=== PATIENT | male | born 1970 | race Caucasian/White ===

== ENCOUNTER 2020-02-02 13:36 | Observation (INO) | payer BC ==
[~2020-02-02] VITALS: Ht 180.3 cm; Wt 128.6 kg
--- NOTE | ~2020-02-02 | HEMODYNAMI ---
PATIENT:HAMIDA MCMILLAN MEDICAL RECORD: [id number] : [birth year] LOCATION:[facility] [address] [id number] ADMISSION DATE: 02/02/20 Generatedon:02/04/202012:37 Patient name: HAMIDA MCMILLAN Patient #: [id number] SSN: [id number] : 1970 Date of study: 02/04/2020 Page: Of Hemodynamic Procedure Report Patient Data Patient Demographics Procedure consent was obtained First Name: HAMIDA Gender: Male Last Name: SIDRA : 1970 Patient #: [id number] Age: 50 year(s) Race: SSN: [id number] Additional ID: [id number] Contact details Address: [address] [place] [address] State: [place] City: [place] Zip code: [address] Past Medical History Performed procedures and imaging results Date Procedure Procedure Results Comments 02/02/2020 Stress testing Positive->Intermediate with SPECT MPI risk Allergies: No known allergies Admission Admission Data Admission Date: 02/02/2020 Admission Time: 14:38 Arrival Date: 02/04/2020 Arrival Time: 0:00 Admit Source: Other Insurance Payor: Private Room #: [id number] health insurance [facility] #: [id number] Height (in.): 71 BSA: 2.51 (m2) Height (cm.): 180.34 BMI: 41.93 (kg/m2) Weight (lbs.): 300.62 Weight (kg.): 136.36 Lab Results Lab Result Date: 02/04/2020 Lab Result Time: 0:00 Biochemistry Name Units Result Min Max BUN mg/dl 15 --(--*-)-- 7 18 Creatinine mg/dl 0.9 --(-*--)-- 0.6 1.3 Creatinine l 2 -*(----)-- 21 215 Kinase eGFR ml/min 90 --(*---)-- 90 120 NONAFRICAN Troponin l ng/ml 0.017 --(-*--)-- 0 0.06 CBC Name Units Result Min Max Hematocrit % 40.3 -*(----)-- 42 54 Hemoglobin g/dl 13.2 -*(----)-- 13.5 17.5 Procedure Procedure Types Cath Procedure Diagnostic Procedure [facility] w/Coronaries Sedation Charges Moderate Sedation up to 15 minutes Procedure Description Procedure Date Procedure Date: 02/04/2020 Procedure Start Time: 12:20 Procedure End Time: 12:32 Procedure Staff Name Function Herminio Devi MD Performing Physician Modesta Morin RT Monitor Mirna Lopez RT Scrub Mallory Ngo RN Nurse Indication Unstable angina Procedure Data Cath Procedure Fluoroscopy Diagnostic fluoroscopy Total fluoroscopy Time: 1 time: 1 min min Diagnostic fluoroscopy Total fluoroscopy dose: 352 dose: 352 mGy mGy Contrast Material Contrast Material Type Amount (ml) Isovue 300 55 Entry Location Entry Primary Successful Side Size Upsize Upsize Entry Closure Succes sful Closure Location (Fr) 1 (Fr) 2 (Fr) Remarks Device Remarks Femoral Right 5 Fr Exoseal artery Estimated blood loss: 5 ml Procedure Complications No complications Procedure Medications Medication Administration Route Dosage Oxygen etCO2 Nasal cannula 2 l/min Lidocaine 2% added to field 20 Heparin Flush Bag added to field 2 bags (1000units/500ml NS) 0.9% NaCl I.V. 100 ml/hr Versed I.V. 1 mg Fentanyl I.V. 50 mcg Versed I.V. 1 mg Fentanyl I.V. 50 mcg Versed I.V. 1 mg Radial Cocktail added to field 1 syringe (Verapamil 2mg/Nitro 400mcg/Heparin 1500units) Hemodynamics Rest BSA: 2.51 (m2) HGB: 13.2 (g/dl) O2 Consumption: Estimated: 252.15 (ml/min) O2 Co nsumption indexed: Estimated:100.46 (ml/min/m) Heart Rate: 21 (bpm) Pressure Samples Time Site Value (mmHg) Purpose Heart Use Rate(bpm) 12:29 LV 110/10,17 Snapshot 82 Gradients Valve Time Site Site Mean SEP/DFP Peak To Heart Use 1 2 (mmHg) (sec/min) Peak Rate (mmHg) (bpm) Aortic 12:30 LV AO 86 Snapshots Pre Cath Intra NCS Post Cath Vital Signs Time Heart Resp SPO2 etCO2 NIBP (mmHg) Rhythm Pain Sedation Rate (ipm) (%) (mmHg) Status Level (bpm) 12:11:30 69 21 99 27.9 147/88(116) NSR 0 (11) 10(A) , No pain 12:15:46 71 18 98 34.6 143/78(103) NSR 0 (11) 10(A) , No pain 12:20:00 75 20 93 32.4 133/77(106) NSR 0 (11) 10(A) , No pain 12:24:08 76 18 93 33.9 138/85(110) NSR 0 (11) 9(A) , No pain 12:28:18 80 20 96 33.9 141/83(113) NSR 0 (11) 9(A) , No pain 12:32:27 75 18 94 33.9 146/87(111) NSR 0 (11) 10(A) , No pain Medications Time Medication Route Dose Verified Delivered Reason Notes Effectiveness by by 11:50:01 Oxygen etCO2 2 l/min Herminio Tejada used for Nasal [facility] Jesús Ngo RN procedure cannula 12:00:09 Lidocaine 2% added 20ml Herminio Herminio for local to vial Count Includes [facility] anesthetic field MD HUSSEIN 12:00:16 Heparin Flush added 2 bags Herminio Herminio used for Bag to Count Includes [facility] procedure (1000units/500ml field MD HUSSEIN NS) 12:00:26 0.9% NaCl I.V. 100 Herminio Buffie Per ml/hr [facility] Jesús Ngo RN physician 12:05:05 Radial Cocktail added 1 Herminio Buffie Wasted, (Verapamil to syringe [facility] Jesús Ngo RN femoral 2mg/Nitro field HUSSEIN artery 400mcg/Heparin access 1500units) obtained. 12:13:35 Versed I.V. [address] [facility] Jesús Ngo RN sedation 12:13:41 Fentanyl I.V. 50 mcg Herminio Shinie for [facility] Jesús Ngo RN sedation 12:20:08 Versed I.V. 1 mg Herminio Buffie for [facility] Jesús Ngo RN sedation 12:20:12 Fentanyl I.V. 50 mcg Herminio Shinie for [facility] Jesús Ngo RN sedation 12:26:33 Versed I.V. 1 mg [address]io [address]ie for [facility] Jesús Ngo RN sedation Procedure Log Time Note 11:44:50 Informed consent obtained and on chart 11:45:43 Patient allergic to No known allergies 11:48:04 Lab Result : Troponin l 0.017 ng/ml 11:48:04 Lab Result : eGFR NONAFRICAN 90 ml/min 11:48:04 Lab Result : Creatinine Kinase 2 l 11:48:04 Lab Result : BUN 15 mg/dl 11:48:04 Lab Result : Creatinine 0.9 mg/dl 11:48:04 Lab Result : Hematocrit 40.3 % 11:48:04 Lab Result : Hemoglobin 13.2 g/dl 11:48:07 Arrival Date: 02/04/2020 12:00:00 AM 11:48:08 Admit Source: Other 11:48:15 Insurance Payor : Private health insurance 11:48:25 Diagnostic Cath Status : Urgent 11:49:00 Indication : Unstable angina 11:49:33 Patient Height : 71 inches 11:49:39 Patient Weight : 300.62 lbs 11:50:01 Oxygen 2 l/min etCO2 Nasal cannula was administered by Mallory Ngo RN; used for procedure; Verbal order read back and verified. 11:50:06 ACC Patient presents with Stable Angina CCS Anginal Class 1--Ordinary physical activity does not cause angina, angina occurs with strenuos, rapid, or prolonged activity.. 11:50:10 Procedure Status Urgent Heart Cath (IP). 11:50:13 Mallory Ngo RN sent for patient. Start room use. 11:50:15 Time tracking: Regular hours (M-F 7:00 - 5:00) 11:50:19 Plan of Care:Hemodynamics will remain stable., Cardiac rhythm will remain stable., Comfort level will be maintained., Respiratory function will remain adequate., Patient/ family verbilizes understanding of procedure., Procedure tolerated without complication., Recovers from procedure without complications.. 11:50:34 H&P Date Dictated: 02/02/2020 Within 30 days and on chart.. 11:50:35 Pre-procedure instructions explained to patient. 11:50:35 Pre-op teaching completed and patient verbalized understanding. 11:50:37 Family unavailable. 11:50:38 Patient NPO since Midnight. 11:50:47 Lab results completed and on chart. 11:51:18 Stress Test: yes; abnormal INFERIOR LATERAL 11:51:28 Alarms reviewed by R. N. 11:51:28 Sharps counted by scrub and verified by R.N. 11:55:21 Risk of Mortality: 0.1 11:55:24 Risk of blood transfusion: 0.2 11:55:27 Risk of LISET: 0.3 11:56:02 Patient received from Med II to CCL 1 Alert and oriented. Tansferred to table in Supine position. 11:56:08 Warm blankets applied, and bettina hugger turned on for patient comfort. 11:56:09 Correct patient and procedure confirmed by team. 11:56:11 ECG and BP/O2 sat monitors applied to patient. 11:56:19 Is the patient allergic to Iodine/contrast media? No. 12:00:09 Lidocaine 2% 20ml vial added to field was administered by Herminio Devi MD; for local anesthetic; Verbal order read back and verified. 12:00:16 Heparin Flush Bag (1000units/500ml NS) 2 bags added to field was administered by Herminio Devi MD; used for procedure; Verbal order read back and verified. 12:00:26 0.9% NaCl 100 ml/hr I.V. was administered by Mallory Ngo RN; Per physician; Verbal order read back and verified. 12:02:17 Called and spoke with spouse of pt, Narayan Mcmillan and update given. 12:05:05 Radial Cocktail (Verapamil 2mg/Nitro 400mcg/Heparin 1500units) 1 syringe added to field was administered by Mallory Ngo RN; ; Wasted, femoral artery access obtained. Verbal order read back and verified. 12:10:18 Vital chart was started 12:10:19 Baseline sample Acquired. 12:10:22 Rhythm: sinus tachycardia 12:10:24 Full Disclosure recording started 12:10:30 Was the patient premedicated? Yes 12:10:31 Is patient on blood thinner?No 12:10:36 Patient diabetic? No. 12:10:42 Previous problem with sedation/anesthesia? No ? 12:10:44 Snore? Yes 12:10:45 Sleep apnea? No 12:10:46 Deviated septum? No 12:10:46 Opens mouth fully? Yes 12:10:47 Sticks out tongue? Yes 12:10:49 Airway obstruction? No ? 12:10:52 Dentures? No ? 12:10:54 Pre procedure: right dorsailis pedis pulse 2+ Normal; easily identifiable; not easily obliterated 12:10:56 Pre procedure: left dorsailis pedis pulse 2+ Normal; easily identifiable; not easily obliterated 12:10:59 Modified Miguel's test Radial < 7 seconds 12:11:02 Patient pain scale 0/10 ?. 12:11:08 IV patent on arrival in left forearm with 0.9% NaCl at [facility]. 12:11:13 Right Radial & Right Groin area was prepped with chlora-prep and draped in sterile fashion 12:11:15 Physician arrived 12:11:16 --------ALL STOP TIME OUT------ 12:11:16 Final Timeout: patient, procedure, and site verified with staff and physician. All members of the team are in agreement. 12:11:18 Right Radial & Right Groin site verified by team. 12:11:22 Fire Safety Assessment: A--An alcohol-based skin anteseptic being used preoperatively., C--Open oxygen or nitrous oxide is being used., D--An ESU, laser, or fiber-optic light is being used. 12:11:25 Physical assessment completed. ASA score P 2 - A patient with mild systemic disease as per Herminio Devi MD. 12:11:31 1) 90+ Normal kidney functon but urine findings or structural abnormalities or genetic trait point to kidney disease. 12:11:33 Maximum allowable contrast dose (3.7 X eGFR X 0.75)250 ml. 12:11:37 Sedation plan: IV Moderate Sedation Medication:Versed, Fentanyl 12:11:40 Use device set Radial Dx or PCI 12:11:41 ACIST Syringe (41698) opened to sterile field. 12:11:41 Medline Cath Pack ([id number]) opened to sterile field. 12:11:41 Bag Decanter () opened to sterile field. 12:11:42 ACIST Hand Control (82346) opened to sterile field. 12:11:42 ACIST Manifold (71790) opened to sterile field. 12:11:43 Tegaderm 4 x 4 (1626W) opened to sterile field. 12:11:43 MBrace Wrist Support ([id number]) opened to sterile field. 12:11:45 EMERALD Guide Wire (502-010) opened to sterile field. 12:11:45 SHEATH 6FR RAIN (6543951) opened to sterile field. 12:13:35 Versed 1 mg I.V. was administered by Mallory Ngo RN; for sedation; Verbal order read back and verified. 12:13:41 Fentanyl 50 mcg I.V. was administered by Mallory Ngo RN; for sedation; Verbal order read back and verified. 12:20:08 Versed 1 mg I.V. was administered by Mallory Ngo RN; for sedation; Verbal order read back and verified. 12:20:12 Fentanyl 50 mcg I.V. was administered by Mallory Ngo RN; for sedation; Verbal order read back and verified. 12:20:46 Procedure started. 12:20:54 Local anesthetic to right radial artery with Lidocaine 2% by Herminio Devi MD.INITIAL ACCESS ONLY 12:24:39 Unable to gain radial access 12:24:43 Local anesthetic to right femoral artery with Lidocaine 2% by Herminio Devi MD.ADDITIONAL ACCESS 12:24:55 SHEATH 5FR [place] (KGC648) opened to sterile field. 12:24:56 DIAGNOSTIC Multipack 5Fr catheter set (UM6406) opened to sterile field. 12:25:08 A 5 Fr sheath was inserted into the Right Femoral artery 12:25:44 5 Fr jl 4 guide catheter was inserted over the wire 12:26:33 Versed 1 mg I.V. was administered by Mallory Ngo RN; for sedation; Verbal order read back and verified. 12:26:40 LCA angiography performed. 12::43 Injector settings: Ml/sec: 3, Volume: 6, 12:27:28 Catheter removed. 12:27:34 5 Fr 3drc guide catheter was inserted over the wire 12:28:21 RCA angiography performed. 12:28:26 Injector settings: Ml/sec: 3, Volume: 6, 12:28:30 Catheter removed. 12:28:51 5 Fr pigtail guide catheter was inserted over the wire 12:29:07 EXOSEAL 5Fr (EX500) opened to sterile field. 12:29:50 LV hemodynamics recorded. 12:29:52 LV gram done using JOHNSON 12:30:03 EF : 55 % 12:30:06 Injector settings: Ml/sec: 5, Volume: 15, 12:30:08 Catheter removed. 12:30:35 ACCDominant side:Right 12:30:45 Sheath removed intact; hemostasis achieved with Exoseal to the Right Femoral artery. 12:30:46 Procedure ended.(Physican Out) 12:30:55 Fluoroscopy time 01.00 minutes. 12:30:58 Fluoroscopy dose: 352 mGy 12:30:58 Flurop Dose total: 352 12:31:04 Dose Area Product 93763 mGy/cm. 12:31:08 Contrast amount:Isovue 300 55ml. 12:31:10 Maximum allowable dose exceeded? No. 12:31:20 Sharps counted by scrub and verified by R.N. 12:31:22 Insertion/operative site no bleeding no hematoma. 12:31:24 Post-op/insertion site Right Femoral artery dressed using a 4 x 4 and Tegaderm. 12:31:27 Post procedure rhythm: unchanged. 12:31:30 Estimated blood loss: 5 ml 12:31:31 Post procedure instruction explained to patient.Patient verbalizes understanding. 12:31:32 Patient needs reinforcement of post procedure teaching. 12:31:40 Procedure type changed to Cath procedure, Diagnostic procedure, LHC, C w/Coronaries, Sedation Charges, Moderate Sedation up to 15 minutes 12:31:42 Procedure and supply charges have been captured, reviewed, submitted and are correct. 12::46 Procedure Complication : No complications 12:31:50 Vital chart was stopped 12:31:53 [facility] Findings: mild to moderate CAD (<70%) 12:31:54 Operative report dictated upon procedure completion. 12:31:55 See physician's report for complete and final results. 12:31:58 Report given to [facility]. 12:32:03 Patient transfered to [facility] with Stretcher. 12:32:05 Procedure ended. 12:32:05 Full Disclosure recording stopped 12:32:12 End room use (Document Last) 12:32:38 End room use (Document Last) 12:32:56 End room use (Document Last) Device Usage Item Name Manufacture Quantity Catalog Hospital Part Current Minima l Lot# / Number Charge Number Stock Stock Serial# Code ACIST Acist 1 29315 [id number] 301442 150636 20 [id number] Grid Solutions Medline Medline 1 [id number] 69248 648578 5 Cath Pack ([id number]) Bag Microtek 1 230751 90655 912659 5 Decanter Medical Inc. () ACIST Hand Acist 1 56337 979468 570628 967005 5 Control Medical (58615) Systems Inc ACIST Acist 1 09216 239774 845092 965688 5 Manifold Medical (06274) Systems Inc Tegaderm 4 3M 1 1626W 356167 839115 970253 5 x 4 (1626W) MBrace Advanced 1 140-0250-00 732367 90841 488437 5 Wrist Vascular Support Dynamics ([id number]) EMERALD Cardinal 1 502-455 010687 529149 407345 5 Guide Wire Health (502-455) SHEATH 6FR Cardinal 1 [id number] 220272 3753457 517352 5 V[employer] (8538923) SHEATH 5FR Terumo 1 LEW348 784922 599626 140754 5 [place] (AAZ030) DIAGNOSTIC Cardinal 1 RP9430 739308 54581 282037 30 Multipack InSite Wireless 5Fr catheter set (IN5135) EXOSEAL 5Fr Cardinal 1 EX500 638438 984773 506713 10 (EX500) Health Signature Audit [place] Stage Time Signature Unsigned Intra-Procedure 02/04/2020 Modesta Morin 12:32:39 PM RT(R) Intra-Procedure 02/04/2020 Mallory Ngo RN 12:32:56 PM Intra-Procedure 02/04/2020 Herminio Waldrop 12:37:50 PM Jesús [place]IN [address] [place] [address]
[2020-02-02 13:57] LABS: HEMATOCRIT 43.5 % (42.0-54.0); HEMOGLOBIN 14.4 g/dL (13.5-17.5); LYMPHOCYTES 26.9 % (15-50); MCH 27.5 pg (26.0-34.0); MCHC 33.1 g/dL (31.0-37.0); MCV 83.2 fL (80.0-100.0); MEAN PLATELET VOLUME 8.4 fL (7.4-10.4); NEUTROPHILS 64.1 % (40-80); PLATELET COUNT 294 10x3/uL (130-400); RBC 5.23 10x6/uL (4.20-6.10); RDW 13.3 % (11.5-14.5); WBC 6.6 10x3/uL (4.8-10.8)
[2020-02-02 14:11] LABS: CALC OSMOLALITY 281 mosm/kg (275-300); CALCIUM 8.8 mg/dL (8.5-10.1); CARBON DIOXIDE 28.2 mmol/L (21.0-32.0); CHLORIDE - SERUM 106 mmol/L (98-107); GLUCOSE 96 mg/dL (74-106); POTASSIUM - SERUM 4.1 mmol/L (3.5-5.1); SODIUM 141 mmol/L (136-145); UREA NITROGEN 16 mg/dL (7-18); eGFR NON AFRICAN AMERICAN 83 mL/min (90-120)
[2020-02-02 14:26] LABS: ALBUMIN 3.7 g/dL (3.4-5.0); ALKALINE PHOSPHATASE 53 U/L (30-120); ALT (SGPT) 38 U/L (10-68); BILIRUBIN - TOTAL 0.35 mg/dL (0.2-1.3); CKMB 3.2 U/L (0.0-3.6); CREATINE KINASE 263 UL (21-232); PRO BNP 158 pg/mL (0-125)
[2020-02-02 14:32] LABS: TROPONIN-I < 0.017 ng/mL (0.000-0.060)
[2020-02-02 14:47] VITALS: BP 125/80
[2020-02-02] MEDS ORDERED: BENADRYL25 MG PO (15:07)
[2020-02-02] MEDS ORDERED: OSTEO BI-FLEX1 EAC1 PO (15:07)
[2020-02-02 15:14] LABS: LDL-HDL RATIO 3.3 ratio (1.5-3.5)
--- NOTE | 2020-02-02 15:34 | NUR ---
RECEIVED PT TO ROOM 2115 VIA WHEELCHAIR, PT A/O X4, RESP EVEN AND NONLABORED ON RA. ORIENTED PT TO ROOM AND CALL LIGHT. WILL ASSESS PT AND START PLAN OF CARE.
--- NOTE | 2020-02-02 15:35 | NUR ---
PAGED DR. DRUMMOND.
[2020-02-02 15:36] VITALS: BP 137/86; BMI 41.9
[2020-02-02 15:59] VITALS: BP 137/86
[2020-02-02 19:51] LABS: CREATINE KINASE 198 UL (21-232); TROPONIN-I < 0.017 ng/mL (0.000-0.060)
[2020-02-02 20:00] VITALS: BP 126/79
--- NOTE | 2020-02-02 20:00 | NUR ---
REPORT RECIEVED AND INITIAL ROUNDS COMPLETED. PT ALERT/ORIENTED AND RESTING IN BED. SR PER TELEMETRY. NONLABORED RESPIRATIONS ON ROOM AIR. SALINE LOCK TO LEFT A/C. INSTRUCT ON NPO AFTER MIDNIGHT UNTIL SEEN BY VINYL FLOORING INSTALLER IN AM. PT DENIES CHEST PAIN AT THIS TIME.
[2020-02-03] VITALS: BP 114/73
[2020-02-03 02:30] LABS: HEMATOCRIT 40.3 % (42.0-54.0); HEMOGLOBIN 13.2 g/dL (13.5-17.5); LYMPHOCYTES 28.3 % (15-50); MCH 27.2 pg (26.0-34.0); MCHC 32.8 g/dL (31.0-37.0); MCV 83.1 fL (80.0-100.0); MEAN PLATELET VOLUME 8.7 fL (7.4-10.4); NEUTROPHILS 63.1 % (40-80); PLATELET COUNT 275 10x3/uL (130-400); RBC 4.85 10x6/uL (4.20-6.10); RDW 13.3 % (11.5-14.5); WBC 6.2 10x3/uL (4.8-10.8)
[2020-02-03 02:43] LABS: ALKALINE PHOSPHATASE 45 U/L (30-120); BILIRUBIN - TOTAL 0.36 mg/dL (0.2-1.3); CALC OSMOLALITY 279 mosm/kg (275-300); CALCIUM 8.2 mg/dL (8.5-10.1); CARBON DIOXIDE 22.7 mmol/L (21.0-32.0); CHLORIDE - SERUM 108 mmol/L (98-107); CKMB 2.2 U/L (0.0-3.6); CREATINE KINASE 155 UL (21-232); GLUCOSE 101 mg/dL (74-106); POTASSIUM - SERUM 3.6 mmol/L (3.5-5.1); SODIUM 140 mmol/L (136-145); TROPONIN-I < 0.017 ng/mL (0.000-0.060); UREA NITROGEN 15 mg/dL (7-18); eGFR NON AFRICAN AMERICAN 83 mL/min (90-120)
[2020-02-03 02:45] LABS: ALT (SGPT) 28 U/L (10-68)
--- NOTE | 2020-02-03 03:31 | NUR ---
RESTING WITH NO DISTRESS. NPO FOR AM CARDIOLOGY CONSULT. .CPOC.
[2020-02-03 04:00] VITALS: BP 115/75
[2020-02-03 07:54] LABS: ALBUMIN 3.3 g/dL (3.4-5.0); ALKALINE PHOSPHATASE 45 U/L (30-120); ALT (SGPT) 32 U/L (10-68); BILIRUBIN - TOTAL 0.44 mg/dL (0.2-1.3); CALC OSMOLALITY 279 mosm/kg (275-300); CALCIUM 8.6 mg/dL (8.5-10.1); CARBON DIOXIDE 25.2 mmol/L (21.0-32.0); CHLORIDE - SERUM 106 mmol/L (98-107); CREATINE KINASE 141 UL (21-232); CREATININE - SERUM 0.9 mg/dL (0.6-1.3); GLUCOSE 107 mg/dL (74-106); POTASSIUM - SERUM 3.6 mmol/L (3.5-5.1); PROTEIN - SERUM 6.5 g/dL (6.4-8.2); SODIUM 140 mmol/L (136-145); UREA NITROGEN 15 mg/dL (7-18); eGFR NON AFRICAN AMERICAN > 90 mL/min (90-120)
[2020-02-03 08:03] LABS: TROPONIN-I < 0.017 ng/mL (0.000-0.060)
[2020-02-03 08:35] VITALS: BP 142/80
[2020-02-03 08:37] VITALS: Ht 180.3 cm; Wt 128.6 kg
--- NOTE | 2020-02-03 09:03 | NUR ---
PT TO NUCLEAR MED, VIA WHEELCHAIR.
--- NOTE | 2020-02-03 09:57 | NUR ---
PT BACK TO ROOM. PT DENIES ANY NEEDS AT THIS TIME. CALL LIGHT IN REACH, NAD NOTED, WILL CONTINUE TO MONITOR.
--- NOTE | 2020-02-03 12:52 | NUR ---
650MG OF TYLENOL GIVEN FOR PAIN LEVEL OF 5/10. CONSENTS SIGNED BY PT AND PLACED ON CHART. PT DENIES ANY OTHER NEEDS AT THIS TIME. CALL LIGHT IN REACH, NAD NOTED,WILL CONTINUE TO MONITOR.
[2020-02-03 12:56] LABS: CHOL - HDL RATIO 4.7 ratio (2.3-4.9); LDL-HDL RATIO 3.1 ratio (1.5-3.5)
[2020-02-03 13:15] VITALS: BP 110/74
[2020-02-03 18:23] VITALS: BP 115/74
--- NOTE | 2020-02-03 19:29 | NUR ---
RECEIVED BEDSIDE REPORT. PATIENT IS ALERT AND ORIENTED, RESTING IN BED. RESPIRATIONS ARE EVEN AND UNLABORED. NO S/S OF DISTRESS. NO C/O PAIN. NEEDS MET. CALL LIGHT WITHIN REACH. WILL CPOC.
[2020-02-03 20:54] VITALS: BP 131/76
--- NOTE | 2020-02-03 21:42 | NUR ---
PATIENT SHOWERED AND LINENS CHANGED.
[2020-02-04 00:30] VITALS: BP 129/78
[2020-02-04 06:28] VITALS: BP 130/76
[2020-02-04 07:03] LABS: HEMATOCRIT 42.4 % (42.0-54.0); HEMOGLOBIN 13.9 g/dL (13.5-17.5); LYMPHOCYTES 21.9 % (15-50); MCH 27.4 pg (26.0-34.0); MCHC 32.8 g/dL (31.0-37.0); MCV 83.6 fL (80.0-100.0); MEAN PLATELET VOLUME 8.6 fL (7.4-10.4); NEUTROPHILS 69.1 % (40-80); PLATELET COUNT 280 10x3/uL (130-400); RBC 5.07 10x6/uL (4.20-6.10); RDW 13.4 % (11.5-14.5); WBC 5.8 10x3/uL (4.8-10.8)
[2020-02-04 07:07] LABS: CALC OSMOLALITY 279 mosm/kg (275-300); CALCIUM 8.5 mg/dL (8.5-10.1); CARBON DIOXIDE 22.5 mmol/L (21.0-32.0); CHLORIDE - SERUM 106 mmol/L (98-107); GLUCOSE 107 mg/dL (74-106); POTASSIUM - SERUM 3.7 mmol/L (3.5-5.1); SODIUM 140 mmol/L (136-145); UREA NITROGEN 15 mg/dL (7-18); eGFR NON AFRICAN AMERICAN 83 mL/min (90-120)
[2020-02-04 09:14] VITALS: BP 116/69
--- NOTE | 2020-02-04 11:45 | NUR ---
PRE-OPS GIVEN. TO TRIAL JUDGE BY BED.
--- NOTE | 2020-02-04 12:45 | NUR ---
BACK FROM CARPET INSTALLER HELPER. VS WNL. RIGHT GROIN STABLE WITHOUT BLEEDING OR HEMATOMA NOTED. WILL MONITOR.
[2020-02-04] MEDS ORDERED: OMEPRAZOLE40 MG PO (13:51)
--- NOTE | 2020-02-04 14:50 | NUR ---
BED REST UP. GROIN STABLE.
--- NOTE | 2020-02-04 15:20 | NUR ---
IV AND TELEMETRY DCD. DC PLANS GIVEN. UNDERSTANDING VOICED. ESCORTED TO CAR BY W/C.
--- NOTE | 2020-02-05 08:24 | OP ---
PATIENT NAME: HAMIDA VALENTE MEDICAL RECORD: [id number] :66 LOCATION:D.M2 D.2116 ADMISSION DATE:02/02/20 SURGEON: LUZ MARINA BLACK MD DATE OF OPERATION: 02/04/2020 PROCEDURE: Left heart catheterization, selective coronary angiography, right femoral artery approach. CATHETERS: A 5-Chinese sheath, 5/4 left and right [place], 5/4 pig. The procedure was well tolerated. The patient was returned to the villagomez. Sheath removed. ExoSeal device placed. FINDINGS: Left ventriculography in 30-degree JOHNSON view: Normal wall motion and normal systolic function. CORONARY ANATOMY: LEFT MAIN: Left main is free of disease. LAD: Free of disease in the diagonal system. CIRCUMFLEX: Free of disease in the marginal system. RIGHT CORONARY ARTERY: Dominant artery, free of disease. IMPRESSION: Normal LV systolic function, normal coronary anatomy. TRANSINT:[id number] Voice Confirmation ID: [id number] DOCUMENT ID: [id number] LUZ MARINA BLACK MD at 0824 CC: [id number] DICTATION DATE: 02/04/20 1308 LICENSED OCCUPATIONAL THERAPY ASSISTANT: 02/04/20 1531 DIS IN 02/04/20 [facility] [address] [place] [address]
== END 2020-02-04 15:21 | disposition home or self-care (01) ==
LOC: D.ER 13:36 → D.M2 14:38 → OBSVTIME 14:43 → D.M2 02-04 15:21
PROVIDERS: Family Medicine; Internal Medicine Cardiovascular Disease; ADMIT Internal Medicine Nephrology; ATTEND Internal Medicine Nephrology
DX: I20.0 Unstable angina (principal); I10 Essential (primary) hypertension; K21.9 Gastro-esophageal reflux disease without esophagitis